=== PATIENT | female | born 1935 | race Caucasian/White ===

== ENCOUNTER 2019-12-13 09:50 | Observation (INO) | payer MEDICARE, SELFPAY ==
--- NOTE | ~2019-12-13 | XR_ITS ---
EXAMINATION: XR abdomen/kub 1V DATE: 12/16/2019 08:49 INDICATION: Fecal impaction. TECHNIQUE: A supine view of the abdomen was obtained. COMPARISON: Abdomen radiograph 12/15/2019, CT abdomen and pelvis 12/13/2019 FINDINGS: The small bowel is normal in caliber. There is a large volume of stool in the colon with di stention of the rectum. Surgical clips in the right upper quadrant are likely from cholecystectomy. IMPRESSION: 1. Large volume of stool in the colon with persistent distention of the rectum. Reviewed, dictated and finalized at location A. ER GRADER
--- NOTE | ~2019-12-13 | XR_ITS ---
EXAMINATION: XR abdomen/kub 1V DATE: 12/17/2019 13:22 INDICATION: Fecal impaction. TECHNIQUE: A supine view of the abdomen was obtained. COMPARISON: Abdomen radiographs 12/17/2019, CT abdomen and pelvis 12/13/2019 FINDINGS: The rectum is distended by stool. There are no dilated loops of small bowel. Surgical clips in the right upper quadrant are likely from cholecystectomy. IMPRESSION: 1. Persistent rectal distention by stool. Reviewed, dictated and finalized at location A. E WINDER
--- NOTE | ~2019-12-13 | XR_ITS ---
XR chest 2V DATE: 12/13/2019 10:26 INDICATION: Rib pain. Recent fracture. TECHNIQUE: AP and lateral views COMPARISON: 11/19/2019 AP chest FINDINGS: The left apical area is obscured. Cardiomegaly. Aortic calcification. Mild infiltrate or atelectasis is suggested at the posterior lung bases. The lungs otherwise appear essentially clear. No pleural effusion or pulmonary vascular congestion or pneumothorax. Diffuse osteopenia. There is apparent compression fracture deformity of the lower thoracic vertebral body. IMPRESSION: Limited examination Mild infiltrate or atelectasis at the posterior lung bases Cardiomegaly Aortic atherosclerosis Reviewed, dictated and finalized at location A. LER
--- NOTE | ~2019-12-13 | CT_ITS ---
EXAMINATION: CT abdomen pelvis w con DATE: 12/13/2019 10:40 INDICATION: Abdominal pain, diarrhea TECHNIQUE: Computed tomography (CT) of the abdomen and pelvis was performed with 100 cc Omnipaque 350 intravenous contrast. Automated exposure control and iterative reconstruction technique were employe d. Exam dose: 996.04 mGy-cm total exam DLP. COMPARISON: None. FINDINGS: Included lung bases are clear. Cardiomegaly. No pericardial or pleural effusion. Moderately large hiatal hernia. Status post cholecystectomy. This may account for mild intrahepatic and extrahepatic bile duct promin ence. No hepatic, splenic, pancreatic, adrenal or renal space-occupying mass lesion is evident. Approximate ly 3 mm nonobstructing lower pole left renal calculus. No ureteral calculus or hydroureteronephrosis is evident on either side. There is extensive atherosclerotic calcification of the abdominal aorta and calcification at the orig ins of the celiac and superior mesenteric and renal arteries. No abdominal aortic aneurysm. No intrap eritoneal or retroperitoneal or pelvic mass lesion or adenopathy or ascites is detected. There is a large stool ball in the rectosigmoid area. Prominent amount of fecal material in the colon . No bowel obstruction or intraperitoneal free air is detected. The urinary bladder, uterus and adnexal areas are unremarkable. Multilevel degenerative disc disease of the lower thoracic and lumbar spine, most pronounced at L1-2 and L2-3, with associated mild retrolisthesis at each of these levels and also at L3-4. There is prominent degenerative change at the apophyseal joints of the lumbar and lumbosacral spine, with associated grade 1 anterolisthesis at L4-5. IMPRESSION: Rectosigmoid fecal impaction, prominent fecal material in colon; no bowel obstruction or free air Moderately large hiatal hernia Cardiomegaly Small nonobstructing lower pole left renal calculus Reviewed, dictated and finalized at Location A. Reviewed, dictated and finalized at location A. GER [employer] IMPRESSION: Rectosigmoid fecal impaction, prominent fecal material in colon; n o bowel obstruction or free air Moderately large hiatal hernia Cardiomegaly Small nonobstructing lower pole left renal calculus
--- NOTE | ~2019-12-13 | XR_ITS ---
EXAMINATION: XR abdomen/kub 1V DATE: 12/17/2019 05:49 INDICATION: Endotracheal impaction TECHNIQUE: A supine view of the abdomen on 2 radiographs was obtained. COMPARISON: 12/16/2019 FINDINGS: No dilated bowel to suggest obstruction. Minimal change in large amount of stool scattered throughout the colon extending to the rectum. Cholecystectomy clips in right upper quadrant. Lumbar dextroscoli osis with severe spondylosis. IMPRESSION: 1. Unchanged large amount of colonic stool continues distend the rectum. Reviewed, dictated and finalized at location A. ET PRINTER AND TAGGER
--- NOTE | ~2019-12-13 | XR_ITS ---
EXAMINATION: XR abdomen/kub 1V INDICATION: Fecal impaction TECHNIQUE: Supine views of the abdomen were obtained on 2 radiographs. COMPARISON: CT, 12/13/2019 FINDINGS: A large volume of stool is again seen in the rectum and not significantly changed. There ar e no dilated loops of bowel. Cholecystectomy clips are noted. No free intraperitoneal gas is identifi ed. Lumbar dextroscoliosis is noted. IMPRESSION: 1. Fecal impaction without significant change. Reviewed, dictated and finalized at location A. TITATIVE DEVELOPER
[2019-12-13 09:46] VITALS: BP 153/87; PULSE 99; RESP 16; TEMP 36.7; O2SAT 95
--- NOTE | 2019-12-13 09:57 | ED_ITS ---
I attest that this documentation has been prepared under the direction and in the presence of Dinora Johnson Scribe 12/13/19;09:57 HPI - Nausea/Vomiting/Diarrhea General Chief complaint: Nausea/Vomiting/Diarrhea Stated complaint: fall/weakness Time Seen by Provider: 12/13/19 09:53 Source: patient Mode of arrival: EMS Limitations: no limitations History of Present Illness HPI Narrative: An 84 y/o female presents to the ED, via EMS from [place], with c/o diarrhea. Pt states that the diarrhea started 1 week ago. She was recently seen at [facility] for a fall on 12/11/19 and diagnosed with rib fractures and C-Diff. Pt reports decreased appetite, bilateral knee pain, and nausea, but denies vomiting and ABD pain. She notes that the Her PCP is Dr. Duke. She is a never smoker. HTN chronic back pain, , neuro last episode diarrhea today Related Data Home Medications Medication Instructions Recorded Confirmed Aspirin Low Dose 11/19/19 Narcan 11/19/19 atorvastatin 11/19/19 baclofen mg 11/19/19 gabapentin 11/19/19 hydromorphone 11/19/19 omeprazole 11/19/19 pregabalin 11/19/19 Allergies Allergy/AdvReac Type Severity Reaction Status Date / Time No Known Allergies Allergy Unknown Unverified 02/25/09 15:44 [facility] Past Medical History Medical History (Updated 12/13/19 @ 10:03 by Dinora Gongora) Anemia Arthritis C. difficile colitis Cataracts, bilateral Chronic back pain CVA (cerebral vascular accident) GERD (gastroesophageal reflux disease) HLD (hyperlipidemia) HTN (hypertension) Osteoporosis Peripheral neuropathy Rib fracture Shingles Skin cancer TIA (transient ischemic attack) Surgical History Surgical History H/O bilateral cataract extraction History of total bilateral knee replacement Hx of cholecystectomy Social History Social History (Updated 12/13/19 @ 10:01 by Dinora Gongora) Smoking status: Never smoker Living arrangements: assisted living Gender identity (if verbalized by the patient): Female Course Vital Signs Vital signs: Vital Signs Temperature 36.7 C 12/13/19 09:46 Pulse Rate 99 12/13/19 09:46 Respiratory Rate 16 12/13/19 09:46 Blood Pressure 153/87 H 12/13/19 09:46 Pulse Oximetry 95 12/13/19 09:46 Temperature 36.7 C 12/13/19 09:46 Pulse Rate 99 12/13/19 09:46 Respiratory Rate 16 12/13/19 09:46 Blood Pressure 153/87 H 12/13/19 09:46 Pulse Oximetry 95 12/13/19 09:46 Discharge Plan Discharge Prescriptions: No Action Aspirin Low Dose RF: 0 atorvastatin 10 mg tablet RF: 0 omeprazole 40 mg capsule,delayed release(DR/EC) RF: 0 baclofen 10 mg tablet RF: 0 gabapentin 100 mg capsule RF: 0 pregabalin 50 mg capsule RF: 0 Narcan RF: 0 hydromorphone RF: 0
--- NOTE | 2019-12-13 10:05 | ED.NAVMDI ---
HPI - Nausea/Vomiting/Diarrhea General Chief complaint: Nausea/Vomiting/Diarrhea Stated complaint: fall/weakness Time Seen by Provider: 12/13/19 09:53 Source: patient Mode of arrival: EMS Limitations: no limitations History of Present Illness HPI Narrative: An 84 y/o female presents to the ED, via EMS from [place], with c/o diarrhea. Pt states that the diarrhea started 1 week ago and her last episode of diarrhea was earlier this morning. She was recently seen at [facility] ED on 12/11/19 and diagnosed with C-Diff. Pt was also seen on 12/12/19 at [facility] for a fall and diagnosed with rib fractures. Pt reports decreased appetite, bilateral knee pain, and nausea, but denies vomiting and ABD pain. She notes that the bilateral knee pain is chronic and due to her peripheral neuropathy. She did not have her pain medication this morning. Her PCP is Dr. Duke. She is a never smoker and has a DNR. MD elicited complaint: diarrhea Pertinent past history: other (C-Diff) Onset (ago): week(s) (1) Associated nausea: Yes Context: other (C-Diff) Associated symptoms: loss of appetite, nausea/vomiting and other (Bilateral knee pain) Related Data Home Medications Medication Instructions Recorded Confirmed acetaminophen 500 mg PO Q6H PRN 12/13/19 12/13/19 aspirin 81 mg PO DAILY 12/13/19 12/13/19 atorvastatin 10 mg PO DAILY 12/13/19 12/13/19 calcium carbonate [Antacid 215 mg PO TID PRN 12/13/19 12/13/19 (calcium carbonate)] gabapentin 100 mg PO TID 12/13/19 12/13/19 hydromorphone 12 mg PO DAILY@1200 12/13/19 12/13/19 lidocaine [Lidoderm] 1 patch TOPICAL DAILY 12/13/19 12/13/19 multivitamin 1 tablet PO DAILY 12/13/19 12/13/19 naloxone [Narcan] 1 spray INTRANASAL Q2M 12/13/19 12/13/19 omeprazole 40 mg PO DAILY 12/13/19 12/13/19 polyethylene glycol 3350 [Miralax] 17 g PO DAILY 12/13/19 12/13/19 pregabalin 50 mg PO BID 12/13/19 12/13/19 sennosides-docusate sodium [Senna 1 tab-cap PO HS 12/13/19 12/13/19 Plus] Allergies Allergy/AdvReac Type Severity Reaction Status Date / Time No Known Allergies Allergy Unknown Verified 12/13/19 15:28 Review of Systems Review of Systems: All systems reviewed & are unremarkable except as noted in HPI and below Constitutional: Constitutional: Reports poor appetite Gastrointestinal: Gastrointestinal: Denies abdominal pain, Reports diarrhea, Reports nausea and Denies vomiting Musculoskeletal: Musculoskeletal: Reports arthralgias (Chronic bilateral knee) [facility] Past Medical History Medical History (Updated 12/13/19 @ 16:58 by Christen Aburto MD) Anemia Arthritis C. difficile colitis Cataracts, bilateral Chronic back pain CVA (cerebral vascular accident) DNR (do not resuscitate) GERD (gastroesophageal reflux disease) HLD (hyperlipidemia) HTN (hypertension) Osteoporosis Peripheral neuropathy Rib fracture Shingles Skin cancer TIA (transient ischemic attack) Surgical History Surgical History H/O bilateral cataract extraction History of total bilateral knee replacement Hx of cholecystectomy Social History Social History (Updated 12/13/19 @ 10:01 by Dinora Gongroa) Smoking status: Never smoker Alcohol intake: never Substance use: never Living arrangements: assisted living Gender identity (if verbalized by the patient): Female Spiritual care concerns: No Agree to blood products: Yes Exam Const: General: cooperative, no acute distress and alert Nutritional Appearance: well nourished Orientation/consciousness: patient oriented x3 Limitations: no limitations HENMT: Mouth: Yes lip normal and Yes moist mucous membranes Resp: Effort & Inspection: normal respiratory effort Auscultation: clear to auscultation bilaterally Cardio: Rate: regular rate Rhythm: regular rhythm Peripheral pulses: dorsalis pedis present bilateral 2+ GI: GI Palp: Yes Soft to palpation and No Tenderness to palpation present (GI) Auscultation: normal bowel
[2019-12-13 10:13] LABS: Basophils Absolute Auto 0.1 K/mm3 (0.0-0.1); Basophils Percent Auto 0.6 % (0.2-1.2); Eosinophils Percent Auto 0.4 % (0-4.4); Hematocrit 42.3 % (37.0-47.0); Hemoglobin 13.5 g/dL (12.0-15.0); Immature Granulocyte Absolute 0.02 K/mm3 (0.00-0.031); Immature Granulocyte Percent A 0.2 % (0-0.5); Lymphocytes Absolute Auto 1.17 K/mm3 (0.9-3.2); Lymphocytes Percent Auto 13.8 % (18.3-44.2); Mean Corpuscular HGB Conc 31.9 g/dl (32-36); Mean Corpuscular Hemoglobin 29.7 pg (26-34); Mean Corpuscular Volume 93.2 fl (80-100); Monocytes Absolute Auto 0.6 K/mm3 (0.1-0.6); Neutrophils Absolute Auto 6.6 K/mm3 (1.3-6.7); Platelet Count Result 197 k/mm3 (150-375); Red Blood Count 4.54 M/mm3 (4.2-5.4); Red Cell Distribution Width 13.4 % (11.5-14.5); White Blood Count 8.5 K/mm3 (4.5-10.0)
[2019-12-13 10:27] LABS: Alanine Aminotransferase 15 U/L (4-35); Albumin Level 4.2 g/dL (3.5-5.1); Alkaline Phosphatase 93 U/L (38-126); Aspartate Amino Transferase 25 U/L (14-36); Bilirubin,Total 0.9 mg/dL (0.2-1.3); Blood Urea Nitrogen 20 mg/dL (7-17); Calcium 9.6 mg/dL (8.4-10.2); Carbon Dioxide 31 mmol/L (22-30); Chloride 98 mmol/L (98-107); Estimated CRCL calculation 63 ml/min; Estimated Glomerular Filt Rate > 60; Glucose 103 mg/dL (65-105); Lipase 11 U/L (23-300); Potassium 3.5 mmol/L (3.4-5.0); Sodium 141 mmol/L (137-145)
[2019-12-13 10:36] LABS: Lipase 12 U/L (23-300); Magnesium 2.1 mg/dL (1.6-2.3); Phosphorus 3.1 mg/dL (2.5-4.5)
[2019-12-13] MEDS: HYDROMORPHONE HCL 1 MG/ML INJ IV PUSH (10:43)
[2019-12-13] MEDS: ONDANSETRON INJ 4 MG/2 ML VIAL IV PUSH (10:43)
[2019-12-13] MEDS: LACTATED RINGERS 1,000 ML 999 ML IV CONT (10:46)
--- NOTE | 2019-12-13 10:57 | PCCCNOTE ---
Spoke with ED attending MD regarding placement options. Pt has [facility] ins and will need an approval for placement. Plan is to admit pt unser observation status and Care Coordination will work on getting pt placed into a skilled facility.
--- NOTE | 2019-12-13 11:16 | PC.NURSE ---
PT PLACED ON 2 L NC O2 DUE TO O2 SAT DECREASED TO 83% ON ROOM AIR POST DILAUDID ADMINISTRATION.
[2019-12-13 11:20] LABS: Basophils Absolute Auto 0.1 K/mm3 (0.0-0.1); Basophils Percent Auto 0.6 % (0.2-1.2); Eosinophils Percent Auto 0.5 % (0-4.4); Hematocrit 38.5 % (37.0-47.0); Hemoglobin 12.3 g/dL (12.0-15.0); Immature Granulocyte Absolute 0.02 K/mm3 (0.00-0.031); Immature Granulocyte Percent A 0.3 % (0-0.5); Lymphocytes Absolute Auto 1.44 K/mm3 (0.9-3.2); Lymphocytes Percent Auto 18.1 % (18.3-44.2); Mean Corpuscular HGB Conc 31.9 g/dl (32-36); Mean Corpuscular Hemoglobin 29.7 pg (26-34); Mean Platelet Volume 10.8 fl (7.4-10.4); Monocytes Absolute Auto 0.6 K/mm3 (0.1-0.6); Monocytes Percent Auto 7.2 % (2.6-8.5); Neutrophils Absolute Auto 5.8 K/mm3 (1.3-6.7); Neutrophils Percent Auto 73.3 % (45.5-73.1); Platelet Count Result 165 k/mm3 (150-375); Red Blood Count 4.14 M/mm3 (4.2-5.4); Red Cell Distribution Width 13.3 % (11.5-14.5); White Blood Count 7.9 K/mm3 (4.5-10.0)
[2019-12-13 11:29] LABS: Lactic Acid Reflex 0.8 mmol/L (0.7-2.1)
[2019-12-13 11:30] LABS: Alanine Aminotransferase 13 U/L (4-35); Albumin Level 3.5 g/dL (3.5-5.1); Alkaline Phosphatase 74 U/L (38-126); Aspartate Amino Transferase 21 U/L (14-36); Bilirubin,Total 0.7 mg/dL (0.2-1.3); Blood Urea Nitrogen 19 mg/dL (7-17); Calcium 8.7 mg/dL (8.4-10.2); Carbon Dioxide 28 mmol/L (22-30); Chloride 100 mmol/L (98-107); Estimated CRCL calculation 63 ml/min; Estimated Glomerular Filt Rate > 60; Glucose 99 mg/dL (65-105); Potassium 3.7 mmol/L (3.4-5.0); Sodium 137 mmol/L (137-145)
[2019-12-13 11:40] LABS: Add Urine Microscopic? YES; Appearance Urine Clear (Clear); Bilirubin Urine Negative (Negative); Blood Urine Negative (Negative); Color Urine Yellow (Yellow); Glucose Urine UA Negative (Negative); Ketones Urine 1+ mg/dL (Negative); Leukocyte Esterase Ur Negative LEU/UL (Negative); Mucus Urine Rare /lpf; Nitrate Urine Negative (Negative); Protein Urine 1+ mg/dL (Negative); Squamous Epithelial Cell Urine Rare /hpf (Few); WBC Urine 0-3 /hpf
[2019-12-13 11:44] LABS: Specific Grav Ur 1.045 (1.001-1.035)
[2019-12-13 12:00] VITALS: BP 122/83; PULSE 96; RESP 15; O2SAT 99
[2019-12-13] MEDS: LACTATED RINGERS 1,000 ML 125 ML IV CONT (12:51)
[2019-12-13 13:26] VITALS: BP 120/67; PULSE 95; RESP 16; O2SAT 97
[2019-12-13 14:00] VITALS: BP 138/78; PULSE 86; RESP 16; TEMP 36.2; O2SAT 99; BMI 31.9
[2019-12-13] MEDS: DOCUSATE SODIUM 400 MG/400 ML ENEMA RECTAL (14:30)
--- NOTE | 2019-12-13 14:57 | ADMGEN ---
This patient, Sarah Powell, was admitted to 2 Medical Room 256-. Patient/family oriented to hospital policies and general routines including ID bracelet, bed and alarms, visiting hours, pain management, procedures, bathroom and other care routines, personal items, smoking policy, room service/diet, and visiting hours. Valuables list has been completed. Information on how to activate the Rapid Response Team has been discussed. Patient/Family are encouraged to report perceived risks to care and to ask questions if they do not understand what they are told or what they should do.
--- NOTE | 2019-12-13 18:23 | PM.IMHP ---
H&P: HPI History of Present Illness Chief complaint: Fecal impaction/dehydration/recent rib fractures Narrative: Sarah Powell is a 84 year old female here for diarrhea. Her history is somewhat convoluted and is supplemented by Mirian ([id number]) and the chart. Patient has been having diarrhea for about 1 week. On Dec 11, she developed nausea and dry heaves. No fever or chills. She has been having stool incontinence. No melena or hematochezia. She present to [facility] on Dec 11 and was diagnosed with CDiff. She was discharged back to her assisted living with a prescription for Flagyl and vancomycin. Medications were not filled right away but Mirian needed to get them from a local pharmacy. This morning around 2:00 a.m., patient fell in her room leading are left side. She developed head trauma and left-sided pain. There was no loss of consciousness. There is no chest pain. No syncope. No dizziness or lightheadedness. She states that she was transferring by herself before she fell. She was brought back to [facility] and diagnosed with 3 left rib fractures. She was returned to the assisted living. Usjjb-he-[id number] was unhappy with the care she received and requested the patient be brought to [facility] for evaluation of fall and weakness. Patient states that she has been having trouble walking related to her chronic knee conditions and this is nothing new. The [id number] feels that the patient's weakness has progressed more recently. Patient continues to have the diarrhea. She denies any abdominal pain. No fever or chills. No chest pain or palpitations. She does feel short of breath today but no cough.No dysuria or hematuria. He does have chronic peripheral neuropathy. No diabetes or thyroid disease. She walks with a walker but has been using wheelchair more frequently. She had a light stroke in the past. In the emergency room, patient was hemodynamically stable. Labs were mostly unrevealing with the exception that she had a mildly elevated BUN and a concentrated urine to suggest dehydration. Chest x-ray showed bibasilar atelectasis. CT scan of the abdomen and pelvis showing significant degenerative disc disease in the thoracolumbar spine. She also had a large stool ball in the rectosigmoid area with prominent amount of fecal material in the colon. She was treated with Colace enema Zofran and Dilaudid. She was admitted further care. Review of Systems Review of Systems: All systems reviewed & are unremarkable except as noted in HPI and below PMFSH Past Medical History Medical History Anemia Arthritis C. difficile colitis Cataracts, bilateral Chronic back pain CVA (cerebral vascular accident) DNR (do not resuscitate) GERD (gastroesophageal reflux disease) HLD (hyperlipidemia) HTN (hypertension) Osteoporosis Peripheral neuropathy Rib fracture Shingles Skin cancer TIA (transient ischemic attack) Surgical History Surgical History H/O bilateral cataract extraction History of total bilateral knee replacement Hx of cholecystectomy Family History Family History (Updated 12/13/19 @ 19:28 by Dominic Sanchez MD) Daughter , of complications from liver transplant. Hepatitis Social History Social History (Updated 12/13/19 @ 19:29 by Dominic Sanchez MD) Social History: She is DNR. She nominates mirian be the individual would make medical decisions for her if she is unable. Lifelong nonsmoker. No alcohol use. Smoking status: Never smoker Alcohol intake: never Substance use: never Living arrangements: assisted living Gender identity (if verbalized by the patient): Female Spiritual care concerns: No Agree to blood products: Yes Meds Home Medications and Allergies Home Medications Medication Instructions Recorded Confirmed Type acetaminophen
[2019-12-13 21:35] VITALS: BP 131/73; PULSE 87; RESP 18; TEMP 36; O2SAT 97
[2019-12-13] MEDS: SENNA/DOCUSATE SODIUM TABLET 1 TAB PO (22:21)
[2019-12-14] MEDS: LACTATED RINGERS 1,000 ML 125 ML IV CONT ×3 (00:32→16:45)
[2019-12-14] MEDS: polyethylene glycoL 3350 17 GM POWD.PACK PO ×3 (01:30→16:46)
[2019-12-14 05:45] VITALS: BP 137/78; PULSE 82; RESP 16; TEMP 36.1; O2SAT 98
[2019-12-14 06:02] LABS: Hematocrit 37.7 % (37.0-47.0); Hemoglobin 11.9 g/dL (12.0-15.0); Mean Corpuscular HGB Conc 31.6 g/dl (32-36); Mean Corpuscular Hemoglobin 29.9 pg (26-34); Mean Corpuscular Volume 94.7 fl (80-100); Mean Platelet Volume 11.3 fl (7.4-10.4); Platelet Count Result 163 k/mm3 (150-375); Red Blood Count 3.98 M/mm3 (4.2-5.4); Red Cell Distribution Width 13.2 % (11.5-14.5); White Blood Count 7.7 K/mm3 (4.5-10.0)
[2019-12-14 06:24] LABS: Blood Urea Nitrogen 12 mg/dL (7-17); Calcium 8.5 mg/dL (8.4-10.2); Carbon Dioxide 31 mmol/L (22-30); Chloride 96 mmol/L (98-107); Estimated CRCL calculation 63 ml/min; Estimated Glomerular Filt Rate > 60; Glucose 89 mg/dL (65-105); Potassium 3.4 mmol/L (3.4-5.0); Sodium 138 mmol/L (137-145)
[2019-12-14 07:24] LABS: Folic Acid 15.5 ng/mL (2.76->20)
[2019-12-14 08:00] VITALS: PULSE 82; RESP 16; O2SAT 98
[2019-12-14] MEDS: LIDOCAINE 5% PATCH 1 PATCH TOPICAL (08:49)
[2019-12-14] MEDS: PREGABALIN 50 MG CAPSULE PO ×2 (08:50→16:46)
[2019-12-14] MEDS: GABAPENTIN 100 MG CAPSULE PO ×3 (08:50→16:46)
[2019-12-14] MEDS: ATORVASTATIN 10 MG TABLET PO (08:51)
[2019-12-14] MEDS: MULTIVITAMINS THERAPEUTIC TAB (*BKC) 1 TABLET PO (08:51)
[2019-12-14] MEDS: PANTOPRAZOLE 40 MG TABLET PO ×2 (08:51→22:14)
[2019-12-14] MEDS: ASPIRIN 81 MG CHEWABLE TABLET PO (08:51)
[2019-12-14 09:28] VITALS: BMI 11.0
[2019-12-14] MEDS: ACETAMINOPHEN 500 MG TABLET PO (12:07)
[2019-12-14 14:00] VITALS: BP 131/53; PULSE 88; RESP 16; TEMP 36.4; O2SAT 95
--- NOTE | 2019-12-14 16:34 | PM.IMPN ---
Progress Note: A&P Assessment and Plan (1) Fecal impaction: Code(s): K56.41 - Fecal impaction Status: Acute (2) Dehydration: Code(s): E86.0 - Dehydration Status: Acute (3) Fracture, ribs: Code(s): S22.39XA - Fracture of one rib, unspecified side, initial encounter for closed fracture Status: Acute (4) Chronic back pain: Code(s): M54.9 - Dorsalgia, unspecified; G89.29 - Other chronic pain Status: Acute (5) HTN (hypertension): Code(s): I10 - Essential (primary) hypertension Status: Acute (6) Peripheral neuropathy: Code(s): G62.9 - Polyneuropathy, unspecified Status: Acute Additional Plan Patient seen in the emergency room for diarrhea. CT scan showing fecal impaction. Patietn diagnosed with C diff in the ER at [place] but doubt given the clinical situation. Records from [place] are still pending. Flagyl and vancomycin were not continued. Soapsuds Enema given with minimal response. Currently on Miralax BID. Will repeat enema. Consider Amitiza. Her weakness could be related to spinal stenosis that is progressing. PT/OT started. Stop IVF. Subjective Date/time seen: 12/14/19 16:34 Interval history: 84yo female here for fecal impaction. Family at bedside and he was updated with patient permission. Slept poorly last night. Appetite poor. Denies CP or SOB. Occasional nausea but no vomiting. Exam Narrative: Exam Narrative: Gen - NARD lying almost flat in bed Chest - bibasilar crackles, nml RR CV - RRR S1/S2 2/6 systolic murmur Abd - soft, NT/ND, +BS Ext - trace pedal edema Psych - nml mood and affect Skin - Warm and dry. Objective Data Vital Signs Vital Signs: Vital Signs - 24 hr 12/13/19 21:35 12/14/19 05:45 12/14/19 08:00 Temperature 96.8 F L 97.0 F L Pulse Rate 87 82 82 Respiratory Rate 18 16 16 Blood Pressure 131/73 137/78 Pulse Oximetry 97 98 98 12/14/19 14:00 Temperature 97.6 F Pulse Rate 88 Respiratory Rate 16 Blood Pressure 131/53 L Pulse Oximetry 95 Intake/Output Intake/Output: Intake & Output 02/07/20 02/08/20 02/09/20 02/10/20 23:59 23:59 23:59 23:59 Intake Total 2220 1630 Output Total 150 Balance 2070 1630 Meds/Results Medications: Active Medications Generic Name Dose Route Start Last Admin Trade Name Freq PRN Reason Stop Dose Admin Acetaminophen 500 mg 12/13/19 19:38 12/14/19 12:07 Tylenol Tablet PO 500 mg Q6H PRN Administration Pain Aspirin 81 mg 12/14/19 09:00 12/14/19 08:51 Aspirin Chewable PO 81 mg DAILY ERLIN Administration Atorvastatin Calcium 10 mg 12/14/19 09:00 12/14/19 08:51 Lipitor PO 10 mg DAILY ERLIN Administration Calcium Carbonate 200 mg 12/13/19 19:38 Tums PO TID PRN Acid Reflux Gabapentin 100 mg 12/14/19 09:00 12/14/19 13:43 Neurontin PO 100 mg TID ERLIN Administration Lactated Ringer's 1,000 mls @ 100 mls/hr 12/13/19 12:40 12/14/19 08:49 Lr - Lactated Ringers Iv IV CONT 125 mls/hr .Q10H ERLIN Administration Lidocaine 1 patch 12/14/19 09:00 12/14/19 08:49 Lidoderm TOPICAL 1 patch DAILY ERLIN Administration Multivitamins Therapeutic 1 tablet 12/14/19 09:00 12/14/19 08:51 Multivitamins Therapeutic(*Bkc PO 1 tablet DAILY ERLIN Administration Non-Formulary Medication 1 spray 12/13/19 19:45 Naloxone [Narcan] NASAL 01/12/20 19:46 Q2M ERLIN Oxycodone HCl 10 mg 12/14/19 09:00 12/14/19 08:55 Oxycontin Sr 12hr PO 10 mg Q12HR ERLIN Administration Pantoprazole Sodium 40 mg 12/14/19 09:00 12/14/19 08:51 Protonix PO 40 mg Q12HR ERLIN Administration Polyethylene Glycol 17 gm 12/14/19 09:00 12/14/19 08:50 Miralax PO 17 gm BID ERLIN Administration Pregabalin 50 mg 12/14/19 09:00 12/14/19 08:50 Lyrica PO 50 mg BID ERLIN Administration Senna/Docusate Sodium 1 tab 12/13/19 21:00 02/09/20 22:21 Senokot S Tablet PO 1 ta
--- NOTE | 2019-12-14 18:54 | PC.NURSE ---
After second soap suds enema 500 ml pt had large BM.
[2019-12-14 21:43] VITALS: BP 139/88; PULSE 88; RESP 18; TEMP 36.2; O2SAT 97
[2019-12-14] MEDS: SENNA/DOCUSATE SODIUM TABLET 1 TAB PO (22:12)
[2019-12-15 06:27] VITALS: BP 137/72; PULSE 80; RESP 16; TEMP 36.1; O2SAT 92
[2019-12-15] MEDS: PREGABALIN 50 MG CAPSULE PO ×2 (08:51→18:13)
[2019-12-15] MEDS: ASPIRIN 81 MG CHEWABLE TABLET PO (09:08)
[2019-12-15] MEDS: PANTOPRAZOLE 40 MG TABLET PO ×2 (09:09→21:06)
[2019-12-15] MEDS: ATORVASTATIN 10 MG TABLET PO (09:09)
[2019-12-15] MEDS: GABAPENTIN 100 MG CAPSULE PO ×3 (09:09→18:13)
[2019-12-15] MEDS: MULTIVITAMINS THERAPEUTIC TAB (*BKC) 1 TABLET PO (09:09)
[2019-12-15] MEDS: LIDOCAINE 5% PATCH 1 PATCH TOPICAL (09:10)
[2019-12-15] MEDS: polyethylene glycoL 3350 17 GM POWD.PACK PO ×2 (09:10→18:13)
[2019-12-15 14:00] VITALS: BP 111/57; PULSE 86; RESP 17; TEMP 36.6; O2SAT 96
--- NOTE | 2019-12-15 14:34 | PCOTNOTE ---
Pt refused skilled OT this date. Pt stated her pain level was an 8/10 and just couldn't do a thing.
--- NOTE | 2019-12-15 15:36 | PC.NURSE ---
On 12/15/19, the student, David Hurtado, provided care and completed [facility] documentation on this patient. I have reviewed the student's documentation and agree with the findings.
--- NOTE | 2019-12-15 16:31 | PM.IMPN ---
Progress Note: A&P Assessment and Plan (1) Fecal impaction: Code(s): K56.41 - Fecal impaction Status: Acute Assessment and Plan: CT abdomen/pelvis on admission with rectosigmoid fecal impaction. Has had multiple bowel movements with soapsuds enemas and MiraLax b.i.d.. Repeat KUB done today with fecal impaction still present. Will give lactulose enema. Continue PT/OT. We cannot return to her assisted living facility. Care coordination working on other placement. (2) Dehydration: Code(s): E86.0 - Dehydration Status: Acute Assessment and Plan: Improved. IV fluids discontinued. Will follow. (3) Fracture, ribs: Code(s): S22.39XA - Fracture of one rib, unspecified side, initial encounter for closed fracture Status: Acute Assessment and Plan: Diagnosed when seen at [facility] on 12/12/2019 after fall. Oral acetaminophen as needed for pain. (4) Chronic back pain: Qualifiers: Back pain location: back pain in unspecified location Back pain laterality: unspecified Qualified Code(s): M54.9 - Dorsalgia, unspecified; G89.29 - Other chronic pain Code(s): M54.9 - Dorsalgia, unspecified; G89.29 - Other chronic pain Status: Acute Assessment and Plan: Chronically on narcotics. Will continue Oxycodone. Also has gabapentin, Lyrica and Lidoderm patch. Contributing to fecal impaction. Will monitor. (5) HTN (hypertension): Qualifiers: Hypertension type: essential hypertension Qualified Code(s): I10 - Essential (primary) hypertension Code(s): I10 - Essential (primary) hypertension Status: Acute Assessment and Plan: Blood pressure reviewed on 12/15/2019 and stable. Not currently on medication. Will follow. (6) Peripheral neuropathy: Qualifiers: Peripheral neuropathy type: polyneuropathy, unspecified Qualified Code(s): G62.9 - Polyneuropathy, unspecified Code(s): G62.9 - Polyneuropathy, unspecified Status: Acute Assessment and Plan: Chronic issue. Is on Lyrica and gabapentin at home. Will follow. (7) DVT prophylaxis: Code(s): Z29.9 - Encounter for prophylactic measures, unspecified Status: Acute Assessment and Plan: SCDs. Time Spent With Patient Time with patient: 15 - 25 minutes Subjective Date/time seen: 12/15/19 16:31 Interval history: Date of Service: 12/15/2019. Admitted with fecal impaction. Recently seen at [facility] with presumed diagnosis of Clostridium difficile. Patient initially tells me she has chest pain and shortness of breath but states probably not would request [facility] to. Does feel tired. Some abdominal pain. No dizziness. Headaches sometimes. Review of Systems Constitutional: Constitutional: Denies chills, Denies fever(s) and Reports weakness ENT: Denies nasal discharge Cardiovascular: Cardiovascular: Denies chest pain Respiratory: Respiratory: Denies dyspnea Gastrointestinal: Gastrointestinal: Reports abdominal pain, Denies nausea and Denies vomiting Genitourinary: Genitourinary: Reports no additional female genitourinary complaints Musculoskeletal: Musculoskeletal: Reports no additional musculoskeletal complaints Integumentary/Breasts: Skin/Breast: Denies rash Neurologic: Reports headache(s) (sometimes) Psychiatric: Psychiatric: Denies anxiety and Denies depression Exam Narrative: Exam Narrative: In bed. Awake and alert. Const: General: no acute distress HENMT: Mouth: Yes moist mucous membranes Neck: Neck: supple Lymphatic: lymphadenopathy not noted Resp: Auscultation: clear to auscultation bilaterally, no rales and no wheezes Cardio: Rate: regular rate Rhythm: regular rhythm GI: GI Palp: Yes Soft to palpation and No Tenderness to palpation present (GI) Auscultation: normal bowel sounds Skin: General skin exam: no rashes or lesions noted Neuro: Speech: normal speech Other: generalized weakness Extr
[2019-12-15] MEDS: SENNA/DOCUSATE SODIUM TABLET 1 TAB PO (21:06)
[2019-12-15] MEDS: LACTULOSE ENEMA 200 GM/1,000 ML ENEMA RECTAL (22:10)
[2019-12-15 22:14] VITALS: BP 130/70; PULSE 88; RESP 18; TEMP 35.8; O2SAT 99
[2019-12-16] MEDS: ACETAMINOPHEN 500 MG TABLET PO (04:43)
[2019-12-16 05:47] LABS: Blood Urea Nitrogen 12 mg/dL (7-17); Calcium 8.5 mg/dL (8.4-10.2); Carbon Dioxide 36 mmol/L (22-30); Chloride 96 mmol/L (98-107); Estimated CRCL calculation 63 ml/min; Estimated Glomerular Filt Rate > 60; Glucose 114 mg/dL (65-105); Magnesium 1.9 mg/dL (1.6-2.3); Potassium 3.4 mmol/L (3.4-5.0); Sodium 138 mmol/L (137-145)
[2019-12-16 05:52] VITALS: BP 147/63; PULSE 89; RESP 18; TEMP 36.8; O2SAT 99
[2019-12-16] MEDS: ATORVASTATIN 10 MG TABLET PO (09:13)
[2019-12-16] MEDS: GABAPENTIN 100 MG CAPSULE PO (09:13)
[2019-12-16] MEDS: ASPIRIN 81 MG CHEWABLE TABLET PO (09:13)
[2019-12-16] MEDS: MUPIROCIN 2% OINT 22 GM TUBE 1 APPLIC EACH NARE ×2 (09:14→20:51)
[2019-12-16] MEDS: LIDOCAINE 5% PATCH 1 PATCH TOPICAL (09:14)
[2019-12-16] MEDS: PANTOPRAZOLE 40 MG TABLET PO ×2 (09:14→20:50)
[2019-12-16] MEDS: polyethylene glycoL 3350 17 GM POWD.PACK PO ×2 (09:14→17:29)
[2019-12-16] MEDS: MULTIVITAMINS THERAPEUTIC TAB (*BKC) 1 TABLET PO (09:14)
[2019-12-16] MEDS: PREGABALIN 50 MG CAPSULE PO (09:16)
--- NOTE | 2019-12-16 11:10 | PCOTNOTE ---
Pt refused skilled OT. Pt stated that she had already done therapy this morning. Explained to pt that she worked with PT and OT do different therapies. Pt refused to get up out of bed and transfer to chair. Pt refused arm exercises. Pt refused to wash face and hands. Pt stated come back at 1:00 and Deidra will be here. Plan to attempt skilled OT this afternoon.
--- NOTE | 2019-12-16 12:43 | PM.IMPN ---
Progress Note: A&P Assessment and Plan (1) Fecal impaction: Code(s): K56.41 - Fecal impaction Status: Acute Assessment and Plan: CT abdomen/pelvis on admission with rectosigmoid fecal impaction. Had multiple bowel movements with soapsuds enemas and MiraLax b.i.d. on admission but repeat KUB on 12/15/2019 with fecal impaction still present. Received lactulose enema last night with results. Repeat KUB today with decreased amount of stool but still large amount present. Will continue MiraLax b.i.d.. Add Metamucil b.i.d.. Continue PT/OT. Unable to return to assisted living due to her condition. Authorization for SNF received late today. Anticipate possible discharge tomorrow but would like to recheck KUB to ensure improvement of fecal impaction prior to discharge. (2) Dehydration: Code(s): E86.0 - Dehydration Status: Acute Assessment and Plan: Resolved. IV fluids discontinued. Will follow. (3) Fracture, ribs: Code(s): S22.39XA - Fracture of one rib, unspecified side, initial encounter for closed fracture Status: Acute Assessment and Plan: Diagnosed when seen at [facility] on 12/12/2019 after fall. Still reports some left-sided discomfort as result. Oral acetaminophen as needed for pain. (4) Chronic back pain: Qualifiers: Back pain laterality: unspecified Back pain location: back pain in unspecified location Qualified Code(s): M54.9 - Dorsalgia, unspecified; G89.29 - Other chronic pain Code(s): M54.9 - Dorsalgia, unspecified; G89.29 - Other chronic pain Status: Acute Assessment and Plan: Chronically on narcotics. Caregiver advises me home medications have not been accurately given at assisted living. Caregiver will have correct home medication list faxed to hospital. Will continue Oxycodone, Lyrica and Lidoderm patch. Not supposed to be on gabapentin and will discontinue. Will monitor. (5) HTN (hypertension): Qualifiers: Hypertension type: essential hypertension Qualified Code(s): I10 - Essential (primary) hypertension Code(s): I10 - Essential (primary) hypertension Status: Acute Assessment and Plan: Blood pressure reviewed on 12/16/2019 and remains stable. Not currently on medication. Will follow. (6) Peripheral neuropathy: Qualifiers: Peripheral neuropathy type: polyneuropathy, unspecified Qualified Code(s): G62.9 - Polyneuropathy, unspecified Code(s): G62.9 - Polyneuropathy, unspecified Status: Acute Assessment and Plan: Chronic issue. Only to be on Lyrica at home. Stop gabapentin. Will follow. (7) DVT prophylaxis: Code(s): Z29.9 - Encounter for prophylactic measures, unspecified Status: Acute Assessment and Plan: SCDs. Subjective Date/time seen: 12/16/19 12:43 Interval history: Date of Service: 12/16/2019. Admitted with fecal impaction. Recently seen at [facility] after falls. Caregiver present today. Patient has had bowel movements. Denies abdominal pain currently. No chest pain or shortness of breath. No headache. No nausea or vomiting. Review of Systems Constitutional: Constitutional: Denies chills, Denies fever(s) and Reports weakness ENT: Denies nasal discharge Cardiovascular: Cardiovascular: Denies chest pain Respiratory: Respiratory: Denies dyspnea Gastrointestinal: Gastrointestinal: Denies abdominal pain, Denies nausea and Denies vomiting Genitourinary: Genitourinary: Reports no additional female genitourinary complaints Musculoskeletal: Musculoskeletal: Reports no additional musculoskeletal complaints Integumentary/Breasts: Skin/Breast: Denies rash Neurologic: Reports weakness Psychiatric: Psychiatric: Denies anxiety and Denies depression Exam Narrative: Exam Narrative: In bed. Awake and alert. Const: General: no acute distress HENMT: Mouth: Yes moist mucous membranes Neck: Neck: supple Lymphat
[2019-12-16] MEDS: PREGABALIN 50 MG CAPSULE 100 MG PO ×2 (13:29→17:29)
[2019-12-16] MEDS: PSYLLIUM POWDER PACKET 1 PACKET PO ×2 (13:29→20:51)
[2019-12-16 14:00] VITALS: BP 112/52; PULSE 97; RESP 14; TEMP 36.9; O2SAT 90
[2019-12-16] MEDS: SENNA/DOCUSATE SODIUM TABLET 1 TAB PO (20:50)
[2019-12-16 22:00] VITALS: BP 117/62; PULSE 84; RESP 20; TEMP 37.1; O2SAT 94
[2019-12-17 06:00] VITALS: BP 132/54; PULSE 83; RESP 20; TEMP 36.8; O2SAT 93
[2019-12-17 06:10] LABS: Blood Urea Nitrogen 20 mg/dL (7-17); Calcium 8.4 mg/dL (8.4-10.2); Carbon Dioxide 36 mmol/L (22-30); Chloride 96 mmol/L (98-107); Estimated CRCL calculation 46 ml/min; Estimated Glomerular Filt Rate > 60; Glucose 121 mg/dL (65-105); Magnesium 2.1 mg/dL (1.6-2.3); Potassium 3.6 mmol/L (3.4-5.0); Sodium 139 mmol/L (137-145)
[2019-12-17] MEDS: MUPIROCIN 2% OINT 22 GM TUBE 1 APPLIC EACH NARE (08:23)
[2019-12-17] MEDS: ATORVASTATIN 10 MG TABLET PO (08:23)
[2019-12-17] MEDS: LIDOCAINE 5% PATCH 1 PATCH TOPICAL (08:23)
[2019-12-17] MEDS: MULTIVITAMINS THERAPEUTIC TAB (*BKC) 1 TABLET PO (08:23)
[2019-12-17] MEDS: PSYLLIUM POWDER PACKET 1 PACKET PO (08:23)
[2019-12-17] MEDS: PREGABALIN 50 MG CAPSULE 100 MG PO ×2 (08:23→14:21)
[2019-12-17] MEDS: ASPIRIN 81 MG CHEWABLE TABLET PO (08:23)
[2019-12-17] MEDS: polyethylene glycoL 3350 17 GM POWD.PACK PO (08:23)
[2019-12-17] MEDS: PANTOPRAZOLE 40 MG TABLET PO (08:23)
[2019-12-17] MEDS: LACTULOSE ENEMA 200 GM/1,000 ML ENEMA RECTAL (10:50)
--- NOTE | 2019-12-17 12:13 | PM.IMPN ---
Progress Note: A&P Assessment and Plan (1) Fecal impaction: Code(s): K56.41 - Fecal impaction Status: Acute Assessment and Plan: CT abdomen/pelvis on admission with rectosigmoid fecal impaction. Had multiple bowel movements with soapsuds enemas and MiraLax b.i.d. on admission but repeat KUB on 12/15/2019 with fecal impaction still present. Received lactulose enema late on 12/15/2019 with results. KUB yesterday still with distended rectum but decreased overall amount of stool. Repeat KUB this morning with continued large amount of stool. Repeat lactulose enema given this morning once again with large bowel movement. Follow-up KUB still has large amount of stool but no obstruction. Patient is on MiraLax b.i.d. and Metamucil b.i.d.. As she is having bowel movements, will discharge to SNF today with authorization received. Continue PT OT. (2) Dehydration: Code(s): E86.0 - Dehydration Status: Acute Assessment and Plan: Resolved. IV fluids discontinued. (3) Fracture, ribs: Code(s): S22.39XA - Fracture of one rib, unspecified side, initial encounter for closed fracture Status: Acute Assessment and Plan: Diagnosed when seen at [facility] on 12/12/2019 after fall. Oral acetaminophen along with other chronic pain medications available. (4) Chronic back pain: Qualifiers: Back pain laterality: unspecified Back pain location: back pain in unspecified location Qualified Code(s): M54.9 - Dorsalgia, unspecified; G89.29 - Other chronic pain Code(s): M54.9 - Dorsalgia, unspecified; G89.29 - Other chronic pain Status: Acute Assessment and Plan: Chronically on narcotics. Correct home medication list has been obtained and will continue on discharge. This does include oxycodone, Lyrica and Lidoderm. Not on gabapentin. (5) HTN (hypertension): Qualifiers: Hypertension type: essential hypertension Qualified Code(s): I10 - Essential (primary) hypertension Code(s): I10 - Essential (primary) hypertension Status: Acute Assessment and Plan: Blood pressure reviewed on 12/17/2019 and stable. Not currently on medication. (6) Peripheral neuropathy: Qualifiers: Peripheral neuropathy type: polyneuropathy, unspecified Qualified Code(s): G62.9 - Polyneuropathy, unspecified Code(s): G62.9 - Polyneuropathy, unspecified Status: Acute Assessment and Plan: Chronic issue. Only on Lyrica at home. Other pain medications as noted. (7) DVT prophylaxis: Code(s): Z29.9 - Encounter for prophylactic measures, unspecified Status: Acute Assessment and Plan: SCDs. Time Spent With Patient Time with patient: 15 - 25 minutes Subjective Date/time seen: 12/17/19 12:13 Interval history: Date of Service: 12/17/2019. Admitted with fecal impaction. Recently seen at [facility] after falls. Has been having bowel movements. Does have some abdominal discomfort today but no nausea or vomiting. No chest pain. No shortness of breath. Remains weak. Review of Systems Constitutional: Constitutional: Denies chills, Denies fever(s) and Reports weakness ENT: Denies nasal discharge Cardiovascular: Cardiovascular: Denies chest pain Gastrointestinal: Gastrointestinal: Reports abdominal pain (Slight), Denies nausea and Denies vomiting Genitourinary: Genitourinary: Reports no additional female genitourinary complaints Musculoskeletal: Musculoskeletal: Reports no additional musculoskeletal complaints Integumentary/Breasts: Skin/Breast: Denies rash Neurologic: Reports weakness Psychiatric: Psychiatric: Denies anxiety and Denies depression Exam Narrative: Exam Narrative: In bed. Awake and alert. Const: General: no acute distress HENMT: Mouth: Yes moist mucous membranes Neck: Neck: supple Lymphatic: lymphadenopathy not noted Resp: Auscultation: clear to auscultation bilaterally, no rales
[2019-12-17 14:00] VITALS: BP 102/46; PULSE 82; RESP 18; TEMP 36.4; O2SAT 96
--- NOTE | 2019-12-17 20:48 | PM.DS ---
DS: Diagnosis Admitting Diagnosis Admitting Diagnosis: Fecal impaction Discharge Diagnosis (1) Fecal impaction: Code(s): K56.41 - Fecal impaction Status: Acute (2) Dehydration: Code(s): E86.0 - Dehydration Status: Acute (3) Fracture, ribs: Code(s): S22.39XA - Fracture of one rib, unspecified side, initial encounter for closed fracture Status: Acute (4) Chronic back pain: Qualifiers: Back pain location: back pain in unspecified location Back pain laterality: unspecified Qualified Code(s): M54.9 - Dorsalgia, unspecified; G89.29 - Other chronic pain Code(s): M54.9 - Dorsalgia, unspecified; G89.29 - Other chronic pain Status: Acute (5) HTN (hypertension): Qualifiers: Hypertension type: essential hypertension Qualified Code(s): I10 - Essential (primary) hypertension Code(s): I10 - Essential (primary) hypertension Status: Acute (6) Peripheral neuropathy: Qualifiers: Peripheral neuropathy type: polyneuropathy, unspecified Qualified Code(s): G62.9 - Polyneuropathy, unspecified Code(s): G62.9 - Polyneuropathy, unspecified Status: Acute DS: Summary Hospital Course Reason for hospitalization: Diarrhea. Hospital Course: Date of Service of Discharge: December 17, 2019. History of Present Illness: Patient is an 84-year-old with somewhat convoluted history who was brought to the emergency room with complaint of diarrhea for approximately 1 week. On December 11, 2019 she developed nausea and dry heaves. She presented to the emergency room a [facility] at that time was diagnosed with Clostridium difficile per her power of bankruptcy attorney. She was discharged back to her assisted living with a prescription for Flagyl and vancomycin. Medications were not filled right away. On the morning of presentation patient fell in her room landing on her left-sided approximately 2:00 a.m.. She developed head trauma left-sided pain. No loss of consciousness. No chest pain. No syncope, dizziness or lightheadedness. Patient reports he was transferring by herself before she fell. She was then seen in the emergency room at [facility] once again and diagnosed with 3 left rib fractures. She return to the assisted living but her [id number] was unhappy with the care and requested the patient be brought to [facility] for further evaluation. She has been having trouble walking related to her chronic knee conditions. She does see pain management. No fever chills presently. No chest pain. Patient did report feeling short of breath on the day of presentation but no cough. She does have known chronic peripheral neuropathy. In the emergency room, she was hemodynamically stable. She did have mildly elevated BUN with concentrated urine suggesting dehydration. Imaging with noted large stool ball in rectosigmoid area with prominent amount of fecal material in the colon. With these findings, she was placed in observation for further evaluation and treatment as she was unable to return to her assisted living. Course in Hospital: Patient was placed in observation on the medical floor where she remained for the duration of her stay. She was given soapsuds enema on presentation with some results well as started on MiraLax b.i.d.. Unfortunately, patient had persistence of fecal impaction on repeat imaging on 12/15/2019. She did receive lactulose enema at that time with some results. A repeat KUB on the morning of discharge did show large amount of stool still present. Patient did have large bowel movement after a repeat lactulose some enema. Follow-up KUB still with significant amount of stool but no obstruction and improving. Patient did have Metamucil b.i.d. added to her MiraLax b.i.d. during her stay. She was initially given IV fluids for her dehydration which resolved. Records were received from [facility] with no mention of diarrhea or Clostridium
== END 2019-12-17 20:45 ==
LOC: ANHED 12:32 → ANH2MED 16:58
PROVIDERS: Internal Medicine; Admitting Provider Family Medicine; Emergency Provider Emergency Medicine; PCP Internal Medicine; Visit Provider Hospitalist
DX: K56.41 Fecal impaction (principal); E86.0 Dehydration; S22.42XA Multiple fractures of ribs, left side, initial encounter for closed fracture; W19.XXXA Unspecified fall, initial encounter; M54.9 Dorsalgia, unspecified; G89.29 Other chronic pain; G62.9 Polyneuropathy, unspecified; I10 Essential (primary) hypertension; K21.9 Gastro-esophageal reflux disease without esophagitis; E78.5 Hyperlipidemia, unspecified; M51.35 Other intervertebral disc degeneration, thoracolumbar region; M81.0 Age-related osteoporosis without current pathological fracture; Z66 Do not resuscitate; Z79.82 Long term (current) use of aspirin; Z79.891 Long term (current) use of opiate analgesic; Z79.899 Other long term (current) drug therapy; Z86.73 Personal history of transient ischemic attack (TIA), and cerebral infarction without residual deficits; Z96.653 Presence of artificial knee joint, bilateral
CPT/HCPCS: 36415; 51701; 71046; 74018; 74177; 80048; 80053; 81001; 82607; 82746; 83605; 83690; 83735; 84100; 84443; 85025; 85027; 87081; 87804; 96361; 96365; 96375; 97110; 97161; 97165; 97530; 97535; 99285; A9270; G0378; J0131; J1170; J2405; J7120; Q9967

== ENCOUNTER 2020-12-07 15:37 | Inpatient (IN) | payer MEDICARE, SELFPAY ==
[2020-12-07] VITALS (18 sets, daily range): BP systolic 59–183; BP diastolic 21–152; PULSE 120–135; RESP 16–28; TEMP 36.6–37.6; O2SAT 89–94; BMI 26.9
--- NOTE | ~2020-12-07 | XR_ITS ---
XR chest 1V portable DATE: 12/08/2020 13:24 INDICATION: Respiratory distress TECHNIQUE: Portable AP chest on 02/05/2021 at 1320 hours COMPARISON: December 08, 2020 portable AP chest at 1132 hours FINDINGS: Low lung volumes are again noted with prominent bilateral lower lung infiltrate and/atelect asis, left greater than right. Cardiac megaly. Extensive thoracic aortic calcification. Mild blunting of the costophrenic angles may indicate small pleural effusions. Left internal jugular central venous catheter tip near superior cavoatrial junction. Prominent diffuse osteopenia. Status post cholecystectomy. IMPRESSION: Persistent bilateral lower lung infiltrates and/atelectasis; little interval change since earlier today at 1132 hours Cardiomegaly, aortic atherosclerosis Reviewed, dictated and finalized at location A. MS ADJUDICATOR
--- NOTE | ~2020-12-07 | XR_ITS ---
EXAMINATION: XR chest port-a-cath/central EXAM DATE: 12/08/2020 11:38 INDICATION: Central line placement. TECHNIQUE: Portable AP frontal chest x-ray was obtained. Comparison is made to prior examination from 12/13/2019. FINDINGS: Again there is low lung volume. Mild cardiomegaly. Bibasilar atelectasis and/or pneumonia. Please clinically correlate. There is a left IJ venous line, tip projecting over cavoatrial junction region. There is aortic arteriosclerosis. There is no pneumothorax suspected. Can't exclude small ple ural effusions. The bones are osteopenic. There are bony degenerative changes. There are cholecystec zayda clips. IMPRESSION: 1. Small to moderate amount of patchy bibasilar atelectasis and/or pneumonia. 2. No evidence postprocedure pneumothorax. Reviewed, dictated and finalized at location B. ULUS TEACHER
--- NOTE | ~2020-12-07 | XR_ITS ---
XR retrograde pyelo w/stent LT DATE: 12/08/2020 12:48 INDICATION: Stent placement TECHNIQUE: 43.0 seconds fluoroscopy time 554.80 radcm2. COMPARISON: None FINDINGS: There is a left internal urinary stent placed with the proximal pigtail overlying the left renal pelvis. Surgical clips, right upper quadrant, consistent with cholecystectomy. IMPRESSION: Left internal urinary stent placement Reviewed, dictated and finalized at [facility]. Reviewed, dictated and finalized at location A. EMASON
--- NOTE | ~2020-12-07 | XR_ITS ---
EXAMINATION: XR chest 1V portable EXAM DATE: 12/08/2020 08:01 INDICATION: septic shock. TECHNIQUE: Portable AP frontal chest x-ray was obtained. There is no prior study for comparison. FINDINGS: There is patchy left greater than right basilar airspace disease probably edema or pneumoni a, new compared to prior study. Low lung volume with pulmonary vascular crowding. This and AP techniq ue contribute to prominent cardiac silhouette. There is no pneumothorax suspected. Can't exclude smal l pleural effusions. The bones are osteopenic. There are bony degenerative changes. There is aortic arteriosclerosis. There are cholecystectomy clips. IMPRESSION: 1. Low lung volume. 2. Patchy left basilar greater than right edema or pneumonia. Reviewed, dictated and finalized at location B. GN CONSULTANT
--- NOTE | 2020-12-07 16:03 | PC.NURSE ---
This patient, Sarah Powell, was admitted to [facility] at 1432. EMS stated that the patient's blood pressures were low in transit. Manual blood pressures were taken upon arrival, they were 60's/40's. Patient was lethargic and A&Ox1 at best. Rebecca CRAIG assessed the patient and determined the patient needed a central line and pressors. She was transferred to ICU on 12/07/20 at 1518. Personal belongings sent with patient. Report given to Janet. Appropriate documentation sent with patient.
[2020-12-07] MEDS: DEXTROSE 5%/0.45% SOD CHL 1,000 ML 100 ML IV CONT (16:23)
--- NOTE | 2020-12-07 16:30 | PM.IMHP ---
H&P: HPI History of Present Illness Date/Time: 12/07/20 16:30 Chief Complaint: Sepsis Narrative: Sarah Powell is a 85 year old female who was a direct admit from [facility]. The patient is typically A&O x2 with 1 assist. The patient comes from [facility]. She was complaining of her left side hurting. I did get report from Dr. iKmble at [facility]. And was reported that patient had a systolic blood pressure of 150. Time of onset was unknown and was not noted patient had similar symptoms in the past. It was not known if she was recently seen by another physician for the same complaint. The patient was complaining to her left lower quadrant and stated that she was having pain. Patient was found to be septic. With 100+ white blood cells in her urine bacteria was noted as packed jacob. Patient has had UTIs in the past and a culture was sent that was noted to be from 08/05/2020 which was noted to have E coli. That was sensitive to Rocephin. Therefore she was started on Rocephin at [facility]. I see several blood pressures in the chart with the lowest being 87/45 and the last 1 is 131/54. Her heart rate was noted to be 112. Patient was also given a azithromycin for the possibility of pneumonia. CT of the abdomen and pelvis was read as a 13 x 9 mm left proximal left ureteral calculus causing obstructive uropathy. When the patient initially came to IMU it was very difficult to obtain a blood pressure. She received 2 IV boluses. Her blood pressure was very difficult to obtain. Patient had been on oxygen at 3 L and her O2 saturations were in the upper 80s lower 90s. I spoke with the admissions counselor concerning the patient's blood pressure. I then spoke to her power lighting adviser Mirian drummond and reviewed her Living Will. The patient is a DNR but would be okay with non invasive CPAP or BiPAP. She would also allow IV antibiotics and vasopressors according to her Living Will. I did discuss this with the power lighting adviser and he would like for her to have a central line and vasopressors. I spoke with the intensive his and then moved the patient to the ICU. We are having difficulty finding her blood pressure and is reported that her systolic was in the 70s. I attempted to each side to get a central line and was unable to place a line. It was decided to start Boubacar-Synephrine to get the patient's blood pressure up. The patient was answering some questions and became restless at times. Patient was able to tell me who her power of lighting adviser is and that it is her preacher. Admitted to ICU inpatient status on date of service 12/07/2019 Review of Systems Review of Systems: ROS unobtainable: Yes unobtainable due to medical condition and unobtainable due to mental status PMFSH Past Medical History Medical History (Updated 12/07/20 @ 16:59 by Rebecca Ann NP) Anemia Arthritis C. difficile colitis Cataracts, bilateral Chronic back pain CVA (cerebral vascular accident) DNR (do not resuscitate) GERD (gastroesophageal reflux disease) HLD (hyperlipidemia) HTN (hypertension) Osteoporosis Peripheral neuropathy Rib fracture Shingles Skin cancer TIA (transient ischemic attack) Surgical History Surgical History H/O bilateral cataract extraction History of total bilateral knee replacement Hx of cholecystectomy Family History Family History Daughter , of complications from liver transplant. Hepatitis Social History Social History (Updated 12/07/20 @ 17:00 by Rebecca Ann NP) Social History: She is DNR. She nominates mirian be the individual would make medical decisions for her if she is unable. Lifelong nonsmoker. No alcohol use. She resides at [facility]. Smoking status: Never smoker Alcohol intake: never Substance use: never Gender identity (if verbalized by the
--- NOTE | 2020-12-07 17:08 | ADMIMU ---
This patient, Sarah Powell, was admitted to IMU status @ 1530, and placed in Intensive Care Unit-2. Patient/family oriented to hospital policies and general routines including ID bracelet, bed and alarms, visiting hours, pain management, procedures, bathroom and other care routines, personal items, smoking policy, room service/diet, and visiting hours. Valuables list has been completed. Information on how to activate the Rapid Response Team has been discussed. Patient/Family are encouraged to report perceived risks to care and to ask questions if they do not understand what they are told or what they should do.
--- NOTE | 2020-12-07 17:16 | WPDPROCEDUR ---
Procedures Central Line Placement Left Femoral: Central Line Date: 12/07/20 Central Line Time: 15:41 Discussed w/ the patient/family/POA,the placement of a central venous catheter, including its clinical necessity/indication & associated potential risks, benifits and alternatives.: Yes The patient/family/POA understand(s) and acknowledge(s) the need to proceed with central venous catheter insertion as an important element of the patient's clinical management.: Yes Time Out Performed: Yes Patient Position: supine Patient placed on monitor/pulse ox: Yes Provider Prep: mask, sterile gown, sterile gloves, Max. sterile barrier precautions, cap, hand hygiene with conventional soap/water or alcohol based hand rub and emergent ? sterile barriers not used Central line prep: 2% Chlorhexidine scrub and sterile full body sheet applied Local anesthesia used: lidocaine 1% Amount of anesthesia used (ml): 8 Sterile US Technique with sterile gel/sterile probe covers: Yes Central line lumen inserted: triple Bangladeshi: 7 Complications: hematoma at puncture site and arterial puncture/cannulation Additional comments: I attempted bilateral sides. It was unsuccessful on the right side. On the left side I was not able to advance the dilator. And during the procedure the artery was punctured. Pressure was applied to hematoma. No further hematoma noted. I did try both sides without success.
[2020-12-07 17:47] LABS: Alanine Aminotransferase 41 U/L (4-35); Alkaline Phosphatase 82 U/L (38-126); Anion Gap 11 mmol/L (8-16); Aspartate Amino Transferase 86 U/L (14-36); Bilirubin,Total 0.8 mg/dL (0.2-1.3); Blood Urea Nitrogen 50 mg/dL (7-17); Calcium 7.3 mg/dL (8.4-10.2); Carbon Dioxide 22 mmol/L (22-30); Chloride 109 mmol/L (98-107); Estimated CRCL calculation 14 ml/min; Estimated Glomerular Filt Rate 18; Glucose 121 mg/dL (65-105); Magnesium 1.6 mg/dL (1.6-2.3); Sodium 142 mmol/L (137-145)
[2020-12-07 19:00] LABS: Alveolar/Arterial O2 Gradient 143.3 mmHg; Base Excess ABG -6.5 mEq/l (+/-2.0); Fractional Inspired Oxygen 36 %; HCO3 ABG 20.3 mEq/l (22.0-26.0); Oxyhemoglobin 89.6 % THb (90.0-100.0); PCO2 ABG 45.2 mmHg (35.0-45.0); PO2 FiO2 Ratio Arterial Blood 1.69 %; Total Hemoglobin 12.7 g/dL (12.0-18.0)
[2020-12-07 19:02] LABS: Device NASAL CANNULA; Modified Allen's Test Pass; Site Drawn RIGHT RADIAL
[2020-12-07 22:13] LABS: Hematocrit 35.1 % (37.0-47.0); Hemoglobin 11.5 g/dL (12.0-15.0); Mean Corpuscular HGB Conc 32.8 g/dl (32-36); Mean Corpuscular Hemoglobin 30.7 pg (26-34); Mean Corpuscular Volume 93.6 fl (80-100); Mean Platelet Volume 13.2 fl (7.4-10.4); Platelet Count Result 75 k/mm3 (150-375); Red Blood Count 3.75 M/mm3 (4.2-5.4); Red Cell Distribution Width 14.4 % (11.5-14.5); White Blood Count 9.4 K/mm3 (4.5-10.0)
[2020-12-07 22:17] LABS: Lactic Acid Reflex 3.7 mmol/L (0.7-2.1)
[2020-12-07 22:27] LABS: Band Neutrophils Percent 17 % (0-6); Lymphocytes Absolute Manual 0.94 K/mm3 (1.1-4.5); Lymphocytes Percent Manual 10 % (18-44); Metamyelocytes Percent 2 %; Monocytes Absolute Manual 0.56 K/mm3 (0.1-0.90); Monocytes Percent Manual 6 % (3-9); Myelocytes Percent 1 %; Neutrophils Absolute Manual 7.61 K/mm3 (1.7-7.2); Neutrophils Percent Manual 64 % (46-73); Total Cells Counted 100
[2020-12-07 22:28] LABS: Burr Cells 1+ (NORMAL); Ovalocytes 1+ (NORMAL); Platelet Estimate Decreased (Adequate)
[2020-12-08] VITALS (32 sets, daily range): BP systolic 61–144; BP diastolic 36–123; PULSE 115–151; RESP 14–33; TEMP 36.8–39.2; O2SAT 90–97; BMI 26.9
[2020-12-08 01:04] LABS: Reflex Lactic Acid Yes or No Add Lactic
[2020-12-08 01:47] LABS: Lactic Acid 2.8 mmol/L (0.7-2.1)
[2020-12-08 04:39] LABS: Basophils Percent Auto 0.1 % (0.2-1.2); Hematocrit 38.8 % (37.0-47.0); Hemoglobin 11.7 g/dL (12.0-15.0); Immature Granulocyte Absolute 3.15 K/mm3 (0.00-0.031); Immature Granulocyte Percent A 33.2 % (0-0.5); Immature Platelet Fraction Pct 5.8 % (0.9-11.2); Lymphocytes Absolute Auto 0.51 K/mm3 (0.9-3.2); Lymphocytes Percent Auto 5.4 % (18.3-44.2); Mean Corpuscular HGB Conc 30.2 g/dl (32-36); Mean Corpuscular Volume 102.6 fl (80-100); Mean Platelet Volume 12.5 fl (7.4-10.4); Monocytes Absolute Auto 0.2 K/mm3 (0.1-0.6); Monocytes Percent Auto 2.1 % (2.6-8.5); Neutrophils Absolute Auto 5.6 K/mm3 (1.3-6.7); Neutrophils Percent Auto 59.2 % (45.5-73.1); Nucleated Red Blood Cells Perc 0.4 % (0.0-0.2); Platelet Count Result 92 k/mm3 (150-375); Red Blood Count 3.78 M/mm3 (4.2-5.4); Red Cell Distribution Width 14.6 % (11.5-14.5); White Blood Count 9.5 K/mm3 (4.5-10.0)
[2020-12-08 05:01] LABS: Alanine Aminotransferase 45 U/L (4-35); Albumin Level 2.9 g/dL (3.5-5.1); Alkaline Phosphatase 112 U/L (38-126); Anion Gap 14 mmol/L (8-16); Aspartate Amino Transferase 108 U/L (14-36); Bilirubin,Total 0.8 mg/dL (0.2-1.3); Blood Urea Nitrogen 58 mg/dL (7-17); Calcium 7.4 mg/dL (8.4-10.2); Carbon Dioxide 17 mmol/L (22-30); Chloride 107 mmol/L (98-107); Estimated CRCL calculation 11 ml/min; Estimated Glomerular Filt Rate 13; Glucose 205 mg/dL (65-105); Magnesium 1.7 mg/dL (1.6-2.3); Phosphorus 4.9 mg/dL (2.5-4.5); Potassium 3.7 mmol/L (3.4-5.0); Sodium 138 mmol/L (137-145)
[2020-12-08 05:51] LABS: CRP 44.1 mg/dL (<1.0)
--- NOTE | 2020-12-08 06:56 | PC.NURSE ---
0001 telephoned NATHAN Mcgee ([phone]). Provided status update.
[2020-12-08] MEDS: SODIUM BICARBONATE 8.4% 150 MEQ in WATER, STERILE FOR INJECTION 950 ML 75 MEQ IV CONT (08:06)
[2020-12-08] MEDS: SODIUM CHLORIDE 0.9% IV 250 ML 100 ML IV CONT (08:56)
--- NOTE | 2020-12-08 09:26 | WPDURCON ---
Assessment and Plan Assessment and plan (1) Obstructive uropathy: Code(s): N13.9 - Obstructive and reflux uropathy, unspecified Status: Acute Assessment and Plan: Obtain Consent. Keep NPO. Plan to go to the OR around 1230 today for: Cystoscopy, left ureteroscopy with stent placement, left retrograde pyelogram with Dr. Rosas. (2) UTI (urinary tract infection): Code(s): N39.0 - Urinary tract infection, site not specified Status: Acute Assessment and Plan: Continue IV antibiotics, tailor to blood culture results. Obtain urine culture results from [facility] if done on arrival there, when they are resulted. (3) Sepsis: Code(s): A41.9 - Sepsis, unspecified organism Status: Acute Urology Consult Note HPI Date Seen: 12/08/20 Requesting Physician: Tucker Sanchez MD Primary Care Provider: Sterling Duke, Consult Narrative Narrative: Sarah Powell is a 85 year old female who initially presented to the ER at [facility] yesterday morning for increased weakness and decreased responsiveness. According to her chart, she is normally A&Ox 2-3 and is able to move her wheelchair independently at the [place] where she resides. She was transferred to [facility] last night d/t a diagnosis of urosepsis from a 14x9mm stone found in the proximal left ureter on CT scan. She began to struggle with hypotension and is tachycardic as a result. Her UA at [facility] appeared to be grossly infected. Unfortunately, a urine culture was not obtained upon arrival here d/t being on IV antibiotics. Her WBC is 9.5, creatinine is 3.30 which is up from 2.50 yesterday, blood cultures are pending. She is not responsive and on nasal cannula O2. All information was obtained from the ICU nurse and her chart. Review of Systems Review of Systems: ROS unobtainable: Yes unobtainable due to medical condition PMFSH Past Medical History Medical History Anemia Arthritis C. difficile colitis Cataracts, bilateral Chronic back pain CVA (cerebral vascular accident) DNR (do not resuscitate) GERD (gastroesophageal reflux disease) HLD (hyperlipidemia) HTN (hypertension) Osteoporosis Peripheral neuropathy Rib fracture Shingles Skin cancer TIA (transient ischemic attack) Surgical History Surgical History H/O bilateral cataract extraction History of total bilateral knee replacement Hx of cholecystectomy Family History Family History Daughter , of complications from liver transplant. Hepatitis Social History Social History Social History: She is DNR. She nominates mirian be the individual would make medical decisions for her if she is unable. Lifelong nonsmoker. No alcohol use. She resides at [facility]. Smoking status: Unknown if ever smoked Alcohol intake: unknown Substance use: unknown Substance use type: does not use Gender identity (if verbalized by the patient): Female Sexual Orientation (if Verbalized by the Patient): Straight or Heterosexual Spiritual care concerns: No Agree to blood products: Yes Meds Home Medications and Allergies Home Medications Medication Instructions Recorded Confirmed Type atorvastatin 10 mg PO HS 12/17/19 12/07/20 History multivitamin 1 tablet PO DAILY 12/17/19 12/07/20 History acetaminophen 650 mg PO Q6H PRN 12/07/20 12/07/20 History aspirin [Adult Aspirin] 81 mg PO DAILY 12/07/20 12/07/20 History docusate sodium [Colace] 100 mg PO BID 12/07/20 12/07/20 History hydroxyzine HCl 25 mg PO BID PRN 12/07/20 12/07/20 History linaclotide [Linzess] 145 mcg PO DAILY 12/07/20 12/07/20 History melatonin 5 mg PO HS 12/07/20 12/07/20 History omeprazole 20 mg PO DAILY 12/07/20 12/07/20 History oxycodone 10 mg PO Q6H
--- NOTE | 2020-12-08 09:33 | WPDCNINT ---
Assessment and Plan Assessment and plan (1) Septic shock: Code(s): A41.9 - Sepsis, unspecified organism; R65.21 - Severe sepsis with septic shock Status: Acute Assessment and Plan: Septic shock likely secondary to ureteral stone causing hydronephrosis, possible pyelonephritis versus UTI -patient was adequately fluid-resuscitated -will give additional IV fluid bolus -lactic acid remains 2.8 -continue vancomycin and ceftriaxone -gram-negative bacilli 2 out of bottles on blood cultures that were drawn at [facility], [place] -repeat blood cultures -central line being placed, -patient on peripheral Boubacar-Synephrine which will be switched to Levophed (2) Obstructive uropathy: Code(s): N13.9 - Obstructive and reflux uropathy, unspecified Status: Acute (3) UTI (urinary tract infection): Code(s): N39.0 - Urinary tract infection, site not specified Status: Acute Assessment and Plan: Obstructive uropathy secondary to proximal left ureteral stone 9 x 14 mm. -appreciate urology evaluation recommendation patient for cystoscopy with left ureteroscopy and stent placement with left retrograde pyelogram today (4) Dehydration: Code(s): E86.0 - Dehydration Status: Acute Assessment and Plan: Patient has been adequately fluid-resuscitated, will continue sodium bicarb infusion (5) DVT prophylaxis: Code(s): Z29.9 - Encounter for prophylactic measures, unspecified Status: Acute Assessment and Plan: SCDs Additional Plan Discussed with Mac Sharma, patient's healthcare power of managing attorney, updated with patient's condition and plan of care. He is aware that patient be going for procedure today. Code status: Do not resuscitate, [id number] Critical care time spent: 43 minutes Due to a high probability of clinically significant, life threatening deterioration, the patient required my highest level of preparedness to intervene emergently and I personally spent this critical care time directly and personally managing the patient. This critical care time included obtaining a history; examining the patient; pulse oximetry; ordering and review of studies; arranging urgent treatment with development of a management plan; evaluation of patient's response to treatment; frequent reassessment; and discussions with other providers. It was exclusive of separately billable procedures and treating other patients and teaching time. Please see Assessment and Plan section and the rest of the note for further information on patient assessment and treatment Manager Of Data Consult Note Consult date: 12/08/20 Time Seen: 07:09 Reason for consult: Septic shock, Left proximal ureter stone, altered mental status, acute kidney injury HPI: Sarah Powell is a 85 year old female past medical history of anemia, arthritis, C diff colitis, history of CVA, GERD, hyperlipidemia, hypertension, osteoporosis, peripheral neuropathy, shingles, skin cancer presented the ER at [facility] on 12/07/2020 with complains of weakness, decreased responsiveness. Patient is normally alert and oriented x2 is able to move a wheelchair independently at the [place] which she recites. Patient was transferred to [facility] for urosepsis as a CT scan showed 14 x 9 mm stone in the left proximal greater hydroureteronephrosis on the left side. Patient is a DNR/DNI. Patient arrived at [facility] intermediate Unit which she was found to be hypotensive, has received a total of 3 L of IV fluid bolus since arrival to the ICU, patient's blood pressures remained low and was started on Phenylephrine was started via peripheral line as femoral central line was unable to be placed. Patient also was found to be in acute kidney injury with elevated creatinine and low urine output. Lactic acid down to 2.8 from 3.7 on admission. Patient was transferred to the ICU from intermediate Unit for closer monitoring further acute manageme
[2020-12-08 10:16] LABS: Lactic Acid Reflex 2.8 mmol/L (0.7-2.1)
[2020-12-08] MEDS: LIDOCAINE HCL 1% LOCAL INJ 2 ML AMPUL 5 ML INFILTRATE (10:45)
--- NOTE | 2020-12-08 10:50 | WPDANESEPPF ---
Anes - Initial Pre Proc Eval Procedure: Operation Date: 12/08/20 12:00 Proposed Procedures p CYSTOSCOPY,LEFT RETROGRADE PYELOGRAM,LEFT STENT PLACEMENT - Zeus Rosas MD Date/Time: 12/08/20 10:50 Surgeon: Tucker Sanchez MD Pre Op Diagnosis: Sepsis Patient Data Age: 85 Gender: F Height: 1.68 m Weight: 75.5 kg Last Vital Signs Temp 37.2 C 12/08/20 08:00 Pulse 126 H 12/08/20 08:00 Resp 27 H 12/08/20 08:00 BP 100/43 L 12/08/20 08:00 Pulse Ox 95 12/08/20 08:24 Allergies Allergy/AdvReac Type Severity Reaction Status Date / Time No Known Allergies Allergy Unknown Verified 12/07/20 16:15 Home Medications Medication Instructions Recorded Confirmed Type atorvastatin 10 mg PO HS 12/17/19 12/07/20 History multivitamin 1 tablet PO DAILY 12/17/19 12/07/20 History acetaminophen 650 mg PO Q6H PRN 12/07/20 12/07/20 History aspirin [Adult Aspirin] 81 mg PO DAILY 12/07/20 12/07/20 History docusate sodium [Colace] 100 mg PO BID 12/07/20 12/07/20 History hydroxyzine HCl 25 mg PO BID PRN 12/07/20 12/07/20 History linaclotide [Linzess] 145 mcg PO DAILY 12/07/20 12/07/20 History melatonin 5 mg PO HS 12/07/20 12/07/20 History omeprazole 20 mg PO DAILY 12/07/20 12/07/20 History oxycodone 10 mg PO Q6H 12/07/20 12/07/20 History polyethylene glycol 3350 [Miralax] 17 g PO DAILY 12/07/20 12/07/20 History pregabalin 75 mg PO TID 12/07/20 12/07/20 History quetiapine [Seroquel] 25 mg PO HS 12/07/20 12/07/20 History sennosides [senna] 8.6 mg PO DAILY 12/07/20 12/07/20 History trazodone 50 mg PO HS 12/07/20 12/07/20 History Laboratory Tests 0212/07/20 12/07/20 17:21 18:54 21:34 WBC 9.4 K/mm3 K/mm3 (4.5-10.0) RBC 3.75 M/mm3 L M/mm3 (4.2-5.4) Hgb 11.5 g/dL L g/dL (12.0-15.0) Hct 35.1 % L % (37.0-47.0) MCV 93.6 fl fl (80-100) MCH 30.7 pg pg (26-34) MCHC 32.8 g/dl g/dl (32-36) RDW 14.4 % % (11.5-14.5) Plt Count 75 k/mm3 L D k/mm3 (150-375) MPV 13.2 fl H fl (7.4-10.4) Immature Gran % (Auto) Not Reportable Neut % (Auto) Not Reportable Lymph % (Auto) Not Reportable Bent % (Auto) Not Reportable Eos % (Auto) Not Reportable Baso % (Auto) Not Reportable Lymph # (Auto) Not Reportable Bent # (Auto) Not Reportable Eos # (Auto) Not Reportable Baso # (Auto) Not Reportable Abs Immat Gran (auto) Not Reportable Absolute Neuts (auto) Not Reportable Absolute Nucleated RBC Not Reportable Total Counted 100 Neutrophils % (Manual) 64 % % (46-73) Band Neutrophils % 17 % H % (0-6) Lymphocytes % (Manual) 10 % L % (18-44) Monocytes % (Manual) 6 % % (3-9) Metamyelocytes % 2 % % Myelocytes % 1 % % Nucleated RBC % Not Reportable Abs Neuts (Manual) 7.61 K/mm3 H K/mm3 (1.7-7.2) Abs Lymphs (Manual) 0.94 K/mm3 L K/mm3 (1.1-4.5) Abs Monocytes (Manual) 0.56 K/mm3 K/mm3 (0.1-0.90) Platelet Estimate Decreased (Adequate) % Immature Plt Fraction 10.0 % % (0.9-11.2) Ovalocytes 1+ (NORMAL) Char Cells 1+ (NORMAL) Puncture Site Right radial ABG pH 7.270 L* (7.350-7.450) ABG pCO2 45.2 mmHg H mmHg (35.0-45.0) ABG pO2 61.0 mmHg L mmHg (80.0-100.0) ABG PO2/FiO2 Ratio 1.69 % % ABG HCO3 20.3 mEq/l L mEq/l (22.0-26.0) ABG O2 Saturation 88.0 % L % (95.0-100.0) ABG O2 Content 16.0 %vol %vol (16.0-22.0) ABG Base Excess -6.5 mEq/l mEq/l (+/-2.0) A-a Gradient 143.3 mmHg mmHg Oxyhemoglobin 89.6 % THb L % THb (90.0-100.0) Total Hemoglobin 12.7 g/dL g/dL (12.0-18.0)
--- NOTE | 2020-12-08 11:30 | WPDHPUPDATE1 ---
History and Physical Update Update Date/Time: 12/08/20 11:30 History and Physical has been reviewed, including an updated exam of the patient. There are NO changes in the patient's condition. Risks, benefits, and alternatives have been discussed and questions answered. Patient agrees to proceed with procedure. Proceed with cysto, retrograde, stent placement.
--- NOTE | 2020-12-08 11:31 | WPDHPUPDATE1 ---
History and Physical Update Update Date/Time: 12/08/20 11:31 History and Physical has been reviewed, including an updated exam of the patient. There are NO changes in the patient's condition. Risks, benefits, and alternatives have been discussed and questions answered. Patient agrees to proceed with procedure.
--- NOTE | 2020-12-08 12:01 | PM.IMPN ---
Progress Note: A&P Assessment and Plan (1) Septic shock: Code(s): A41.9 - Sepsis, unspecified organism; R65.21 - Severe sepsis with septic shock Status: Acute Assessment and Plan: Patient was hypotensive at the outside hospital. Patient was sent here further evaluation found persistently hypotensive and tachycardic. She was moved to the ICU and started on pressors. Also with bandemia. Source is UTI with obstructive uropathy. Currently on Levophed and phenylephrine. Wean pressors as tolerated. Continue IV fluids. (2) MAICOL (acute kidney injury): Code(s): N17.9 - Acute kidney failure, unspecified Status: Acute Assessment and Plan: BUN creatinine are elevated on admission and worse today with creatinine 3.3. Secondary to ATN from the sepsis and obstructive uropathy. Continue sodium bicarb and IV fluids. (3) Obstructive uropathy: Code(s): N13.9 - Obstructive and reflux uropathy, unspecified Status: Acute Assessment and Plan: CT scan showing a 13 x 9 mm left proximal ureteral stone with obstruction. Urology has been consulted. Patient being taken to the OR at this time for stent placement. (4) UTI (urinary tract infection): Code(s): N39.0 - Urinary tract infection, site not specified Status: Acute Assessment and Plan: UA noted. Urine and blood cultures are pending. Continue Zosyn and vancomycin. Follow up on culture results. Narrow coverage when able. (5) HTN (hypertension): Qualifiers: Hypertension type: essential hypertension Qualified Code(s): I10 - Essential (primary) hypertension Code(s): I10 - Essential (primary) hypertension Status: Acute Assessment and Plan: Anti hypertensive medications on hold due to above. (6) Peripheral neuropathy: Qualifiers: Peripheral neuropathy type: polyneuropathy, unspecified Qualified Code(s): G62.9 - Polyneuropathy, unspecified Code(s): G62.9 - Polyneuropathy, unspecified Status: Acute Assessment and Plan: All of her p.o. medications are on hold at this time due to her confusion and other medical problems. (7) DVT prophylaxis: Code(s): Z29.9 - Encounter for prophylactic measures, unspecified Status: Acute Assessment and Plan: SCDs (8) Thrombocytopenia: Code(s): D69.6 - Thrombocytopenia, unspecified Status: Acute Assessment and Plan: Patient with thrombocytopenia on admission most likely consumptive from sepsis and infection. Repeat platelet count improved. Continue to monitor closely. Subjective Date/time seen: 12/08/20 12:01 Interval history: Date of service 12/08/20 85yo female with hx of HTN and CVA here for septic shock from UTI with obstructing uropathy. Patient is poorly responsive. She is currently being transferred to the OR for stent placement. Review of Systems Review of Systems: ROS unobtainable: Yes unobtainable due to mental status Exam Narrative: Exam Narrative: AF 98.9 89/70 124 30 95% 5L Gen - tachypneic lying semi-recumbent in bed Chest - coarse BS anteriorly CV - tachycardic, regular Abd - Soft, ND, hypoactive BS Ext - trace indurated pedal edema Neuro - poorly responsive Skin - cool and dry Objective Data Vital Signs Vital Signs: Vital Signs - 24 hr 12/07/20 15:33 12/07/20 16:00 12/07/20 16:44 Temperature 97.8 F Pulse Rate 125 H 120 H 131 H Respiratory Rate 18 Blood Pressure 86/48 L 91/59 L Pulse Oximetry 94 12/07/20 17:34 12/07/20 17:50 12/07/20 18:00 Temperature Pulse Rate 123 H 120 H 120 H Respiratory Rate 21 H Blood Pressure 86/42 L 89/55 L 91/50 L Pulse Oximetry 92 12/07/20 18:18 12/07/20 18:51 12/07/20 19:00 Temperature 99.7 F H Pulse Rate 120 H 130 H 132 H Respiratory Rate 24 H Blood Pressure 86/21 L 93/34 L 158/128 H Pulse Oximetry 91 12/07/20 19:15 12/07/20 19:45 12/07/20 19:5
--- NOTE | 2020-12-08 12:27 | SUR.PREOP ---
[id number] ACCOMPANIED TO PREOP ROOM ENTRY, UNSTABLE-HYPOTENSIVE, TACHYCARDIA WITH MIGUEL ANGEL GTT RUNNING @ 180MCG (54ML/HR) AND BICARB GTT @ 75ML/HR THROUGH RIGHT SUBCLAVIAN CENTRAL LINE ACCESS. DR. ROSE PRESENT AT ARRIVAL AND INSTRUCTED TO TAKE PT IMMEDIATELY TO PACU FOR PREOP PHASE. DR. ROSE ACCOMPANIED PT AND ASSUMED DIRECTION AND CARE OF PT ALONG WITH ANGELO HARRINGTON CRNA. INITIATION OF LEVOPHED GTT (250ML/4MG) @ 5MCG/MIN. ON ARRIVAL, OXYGEN IMMEDIATELY CHANGED FROM 10L VENTIMASK TO NRB @ 15L WITH IMMEDIATE IMPROVEMENT OF SAT-87 TO 96%.
--- NOTE | 2020-12-08 12:47 | P.OP_ITS ---
Procedure Note - Detailed Date of procedure: 12/08/20 Pre-op diagnosis: Sepsis Left proximal ureteral stone obstructing with sepsis Post-op diagnosis: same Procedure performed: Cysto, left retrograde pyelogram, left ureteral stent placement 6 [place] contour Description of procedure: Patient is taken the operative suite and correctly identified. Twenty-two [place] scope inserted in the bladder. No tumors were noted. Unfortunately very minimal see anesthesia could be given due to her status the bladder continued to want to contract. We were able to manipulate a guidewire into the left ureteral orifice and pass it up into the kidney. Pyelogram was then performed. The stone appeared to be sort of in the infundibulum of an upper pole calyx. We then passed a wire all way up past the stone. Six [place] contour stent was then placed with the proximal end coiled past the stone. He took quite a bit of force to get stent in in apparently caused the distal and to be distorted. None the less it is in the bladder. Sixteen [place] Ravi was then placed and inflated with 10 cc sterile water. She is taken back to the ICU. Will see if she recovers from this acute event 1st to deal with the stone of the later point time. Anesthesia: MAC Surgeon: Zeus Rosas MD Drains: Yes Packing: No Pathology: none sent Complications: No immediate complications Condition: stable Disposition: PACU
[2020-12-08 13:01] LABS: Reflex Lactic Acid Yes or No Add Lactic
[2020-12-08] MEDS: fentaNYL CITRATE INJ (*CRX) 100 MCG/2 ML VIAL 25 MCG IV PUSH (13:17)
[2020-12-08] MEDS: CENTRAL LINE FLUSH 10 ML IV PUSH (13:19)
[2020-12-08] MEDS: FUROSEMIDE INJ 40 MG/4 ML VIAL 20 MG IV PUSH (13:34)
[2020-12-08] MEDS: PANTOPRAZOLE SODIUM IV 40 MG VIAL IV PUSH (13:39)
[2020-12-08] MEDS: NOREPINEPHRINE 8 MG/D5W 250 ML 8 MG/250 ML BAG 9.38 MG IV CONT (14:39)
[2020-12-08 15:14] LABS: Lactic Acid 2.4 mmol/L (0.7-2.1)
--- NOTE | 2020-12-08 15:31 | PCWOUND ---
WOCN NOTE Received referral to see patient for buttock wound. patient unstable and unable to turn her at this time. will check again in am.
[2020-12-08] MEDS: VASOPRESSIN INJ 100 UNITS in DEXTROSE 5% 95 ML IV CONT (15:54)
[2020-12-08] MEDS: LORazepam INJ (*CRX) 2 MG/ML VIAL IV PUSH (16:28)
[2020-12-08] MEDS: MORPHINE SULFATE (*CRX) 2 MG/ML INJ IV PUSH (16:29)
--- NOTE | 2020-12-08 17:42 | P.DN_ITS ---
Discharge Sum: Prov Provider Primary care physician: Sterling Duke, Admitting provider: Dotty Draper MD Consults: 12/07/20 Consult to Physician Routine Comment: GATEWAY SPOKE WITH DR. KNUTSON Consulting Provider: Taurus Knutson call center dispatcher/MD group to consult: Urology dr camejo Reason for consultation: 13 x 9 mm left proximal left ureteral calculus causing obstructive uropathy Has provider been notified: Yes Consult to Physician Routine Comment: JOCELINE SPENCE SPOKE WITH DR. HDEZ Consulting Provider: Nida Hdez call center dispatcher/MD group to consult: dr canales Reason for consultation: sepsis Has provider been notified: Yes Wound/ET Consult Routine Reason for Consult:: pressure ulcer on buttocks Pronouncing clinician: Dominic Sanchez Discharge Sum: Diag PCOD Septic shock Contributing Factors (1) Septic shock: (2) MAICOL (acute kidney injury): (3) Obstructive uropathy: (4) UTI (urinary tract infection): (5) Thrombocytopenia: (6) HTN (hypertension): (7) Peripheral neuropathy: Discharge Sum: Summary Date and Time Date of admission: 12/07/20 14:32 Date of : 12/08/20 Time of : 16:32 Summary Details: 85-year-old female with history of CVA hypertension was transferred from outside hospital for septic shock related to UTI and obstructive uropathy. CT scan showed a 13 mm left proximal ureteral stone with obstruction. On arrival here patient was hypotensive and she was moved to the ICU and started on pressors after central line placement. Her clinical course was ortega. She did undergo ureteral stent placement. Her condition deteriorated. Family had been contacted multiple times and were aware of the patient's tenuous condition. They contacted again about the deteriorating clinical condition and did not want further treatment. The patient was made comfortable. She on 12/08/2020. Additional Data Attending physician: Tucker Sanchez MD
== END 2020-12-08 16:32 | disposition expired | DRG 853 ==
LOC: ANHICU 12-08 10:35 → ANHIMU 12-12 14:17
PROVIDERS: Internal Medicine; Urology; Admitting Provider Family Medicine; PCP Internal Medicine; Visit Provider Nurse Practitioner
PROC: 0T778DZ Dilation of Left Ureter with Intraluminal Device, Via Natural or Artificial Opening Endoscopic (ICD-10-PCS; CPT 52352; principal; 2020-12-08 12:00)
DX: A41.9 Sepsis, unspecified organism (principal); R65.21 Severe sepsis with septic shock; N17.0 Acute kidney failure with tubular necrosis; N13.6 Pyonephrosis; G62.9 Polyneuropathy, unspecified; I10 Essential (primary) hypertension; D64.9 Anemia, unspecified; M19.90 Unspecified osteoarthritis, unspecified site; K21.9 Gastro-esophageal reflux disease without esophagitis; E78.5 Hyperlipidemia, unspecified; M81.0 Age-related osteoporosis without current pathological fracture; D69.6 Thrombocytopenia, unspecified; E86.0 Dehydration; Z66 Do not resuscitate; Z96.653 Presence of artificial knee joint, bilateral; Z85.828 Personal history of other malignant neoplasm of skin; Z86.73 Personal history of transient ischemic attack (TIA), and cerebral infarction without residual deficits; Z98.42 Cataract extraction status, left eye; Z98.41 Cataract extraction status, right eye; Z90.49 Acquired absence of other specified parts of digestive tract
CPT/HCPCS: 36415; 36556; 36600; 71045; 74420; 80053; 82805; 83605; 83735; 84100; 84443; 85025; 85055; 86140; 87040; 87077; 87186; A9270; C1751; C1758; C1769; C2617; C9113; J0131; J1940; J2060; J2270; J2370; J2543; J3010; J3370; J7030; J7050; J7060; Q9966